=== PATIENT | male | born 1985 | race Caucasian/White ===

== ENCOUNTER 2020-09-04 13:29 | Emergency (ER) | payer OTHER, SELFPAY | END 2020-09-04 14:12 | disposition left against medical advice (07) | PROVIDERS: Emergency Provider Emergency Medicine | DX: M25.579 Pain in unspecified ankle and joints of unspecified foot (principal) ==

== ENCOUNTER 2021-08-06 16:35 | Emergency (ER) | payer OTHER, SELFPAY ==
--- NOTE | ~2021-08-06 | XR_ITS ---
EXAMINATION: XR KNEE, LEFT CLINICAL INFORMATION: Pain and swelling COMPARISON: None TECHNIQUE: Four views of the left knee. FINDINGS: Small joint effusion. Bones are normal anatomic alignment with no acute fracture or dislocation seen. No bony destructive lesions or periosteal reaction. XR/XR knee LT 4V IMPRESSION: Small joint effusion but no acute underlying bony abnormality.
[2021-08-06 18:10] VITALS: BP 128/89; PULSE 59; RESP 16; TEMP 36.8; O2SAT 99; BMI 33.3
--- NOTE | 2021-08-06 19:10 | ED.LOWEXIN ---
HPI - Extremity Injury (Lower) General Chief Complaint: Extremity Injury, Lower Stated Complaint: left knee swollen and painful Time Seen by Provider: 08/06/21 19:10 Source: patient Mode of arrival: ambulatory Limitations: no limitations History of Present Illness HPI Narrative: Patient presents to the emergency department for evaluation of atraumatic left knee pain and swelling. He states that he woke up this morning and noticed the symptoms. Denies ecchymosis, crepitus, warmth, Denies any fevers, chills, weakness, redness, swelling, numbness, tingling, identifiable causes such as fall or trauma. Reports past injury to the left knee 8 months ago, vague history but states his kneecap was out and had to be put back and then stiched up, denies surgical procedure . Denies any other joint pain/ stiffness, myalgias, locking, popping, or giving out of the knee. Denies concern for exposure to tick bite, recent treatment for STI or concerns for STIs, history of gout, history of DVT/PE, history of cancer. Related Data Previous Rx's Medication Instructions Recorded naproxen 500 mg tablet 500 mg PO BID 10 Days #20 tab 08/06/21 Allergies Allergy/AdvReac Type Severity Reaction Status Date / Time No Known Allergies [NKA] Allergy Mild NOT Unverified 01/13/20 16:24 APPLICABLE Review of Systems Review of Systems: Constitutional: No weight loss, fever, chills, weakness or fatigue. Skin: No rash or itching. Cardiovascular: No chest pain, chest pressure or chest discomfort. No palpitations or pedal edema. Respiratory: No shortness of breath, cough or sputum production. Gastrointestinal: No anorexia, nausea, vomiting or diarrhea. No abdominal pain Genitourinary: No burning micturition. No urinary frequency or incontinence. Musculoskeletal: Positive left knee pain with swelling Psychiatric: No depression or anxiety. Yes all other systems are reviewed and are negative PMFSH Past Medical History Attestation statement: The following information was validated with the patient. Source: old records reviewed Medical History No known health problems Social History Social History Advance Directives: No Advance Directives Information Provided: No Physical Exam Vital Signs: Vital Signs: Last Vital Signs Temp 98.2 F 08/06/21 22:42 Pulse 61 08/06/21 22:42 Resp 16 08/06/21 22:42 BP 137/88 08/06/21 22:42 Pulse Ox 100 08/06/21 22:42 BMI result Body Mass Index 33.3 Vital signs have been reviewed as normal and appeared to be correct. Blood pressure normal.? Heart rate normal.? Respiration rate normal. Temperature normal.? Oxygen saturation normal. Appearance: Alert.?Oriented to person, place and time. No acute distress.?Normal affect. Eyes: Pupils equal, round and reactive to light.? ENT: Pharynx normal.?? Neck: Normal inspection.? Neck supple.?? CVS: Heart sounds normal. Normal heart rate and rhythm.? Pulses normal.?? Respiratory: No respiratory distress.? Lung sounds clear to auscultation bilaterally?? Abdomen: Soft and non-tender.? Skin: Skin warm and dry.? Normal skin color.? Extremities: Effusion to the left knee. no erythema, no warmth, no rash, no redness. Anterior drawer test is negative, posterior drawer test is negative, valgus stress is negative, Varus stress test inducing pain. ? No calf ttp? Neuro: Moves all extremities spontaneously. Sensation intact bilaterally. CN II-XII intact. No focal neuro deficits. Ambulates with antalgic gait. Course Course Course Narrative: Patient is a 36-year-old male with no significant past medical history, presenting to the emergency department min for evaluation of left knee pain and swelling, atraumatic. Physical exam concerning for small joint effusion. Obtain basic labs including CBC, BMP and XR knee. Toradol for pain. History and physical exam inconsistent with cellulitis, septic joint. Reevaluation(s) Reevaluation #1: Called to room by nursing staff, having difficulty obtaining blood due to venous scarring from IV drug use. When speaking with patient he now admits to IV drug use. Reportedly last used 2 days ago. XR of the left knee reveals small joint effusion. Physical exam not consistent with septic joint this time, there is no erythema, no warmth, afhad near full range of motion, is able to walk and bear weight. Time: 19:30 Reevaluation #2: CBC is overall unremarkable. BMP unremarkable. Pain has improved Toradol. Discussed findings with patient, reviewed reasons to return back to the emergency department, close monitoring, naproxen twice daily, compression, rest, ice, elevation, follow-up with primary care provider. All questions were answered and patient is agreeable with plan of care for discharge home. Time: 23:01 MDM - Extremity Injury (Lower) Medical Records Attestation: I reviewed the patient's medical records. Lab Data Attestation: I reviewed the patient's lab results. Result diagrams: 08/06/21 22:08/06/21 22:01 Labs: Lab Results 08/06/21 08/06/21 Range/Units 22: 22:01 WBC 5.4 (4.8-10.8) X10*3/uL RBC 4.97 (4.60-5.80) X10*6/uL Hgb 14.3 (14.0-18.0) g/dl Hct 42.1 (42.0-52.0) % MCV 84.7 (80.0-98.0) fL MCH 28.8 (27.0-33.0) pg MCHC 34.0 (31.0-36.0) g/dl RDW 13.2 (11.0-16.0) % Plt Count 255 (160-400) X10*3/uL MPV 8.8 L (9.4-12.4) fL Immature Gran % (Auto) 0.2 (0.0-0.4) % Neut % (Auto) 54.7 (45-73) % Lymph % (Auto) 29.3 (20-40) % [place] % (Auto) 9.9 (2-11) % Eos % (Auto) 5.2 H (0-4) % Baso % (Auto) 0.7 (0-2) % Lymph # (Auto) 1.6 (1.2-4.9) X10*3/uL [place] # (Auto) 0.5 (0.1-1.2) X10*3/uL Eos # (Auto) 0.3 (0.0-0.4) X10*3/uL Baso # (Auto) 0.0 (0.0-0.2) X10*3/uL Abs Immat Gran (auto) 0.01 (0.00-0.03) X10*3/uL Absolute Neuts (auto) 2.9 (2.0-8.3) x10*3/uL Absolute Nucleated RBC 0.000 (0.0-0.012) X10*3/uL Nucleated RBC % (auto) 0.0 (0.0-0.2) /100WBC Sodium 140 (135-145) mmol/L Potassium 4.9 (3.3-5.1) mmol/L Chloride 101 (96-108) mmol/L Carbon Dioxide 32 H (22-29) mmol/L Anion Gap 12 (12-20) BUN 6 L (9-16) mg/dL Creatinine 0.82 (0.5-1.4) mg/dL Estim Creat Clear Calc 140.9 Estimated GFR > 60 Random Glucose 96 (60-115) mg/dL Calcium 10.5 H (8.4-10.2) mg/dL Imaging Data XR knee: Radiologist's impression: FINDINGS: Small joint effusion. Bones are normal anatomic alignment with no acute fracture or dislocation seen. No bony destructive lesions or periosteal reaction.? XR/XR knee LT 4V IMPRESSION: Small joint effusion but no acute underlying bony abnormality. ? Discharge Plan Discharge Clinical Impression: Effusion of knee Patient Disposition: Home, Self-Care Instructions: Swollen Knee Joint (ED) Additional Instructions: Please contact your primary care provider to schedule follow-up visit within 1 week. Please return to the emergency department with any new or worsening symptoms or concerns. Such as fevers, shaking chills, redness of the knee knee feels hot to touch, significant increase in pain or swelling, inability to bend knee, inability to bear weight or walk. Prescriptions: New naproxen 500 mg tablet 500 mg PO BID 10 Days Qty: 20 0RF Stand Alone Forms: Work/School Release Interventions: ED Discharge Assessment Last Done: 08/06/21 23:11 Discharge Date/Time: 08/06/21 23:13
[2021-08-06 19:18] VITALS: BP 137/86; PULSE 59; RESP 14; TEMP 36.9; O2SAT 99
[2021-08-06] MEDS: Ketorolac Tromethamine 60 MG/2 ML VIAL IM (19:38)
[2021-08-06 22:06] LABS: MANUAL DIFF FLAG NO
[2021-08-06 22:08] LABS: Basophils Percent Auto 0.7 % (0-2); Eosinophils Absolute Auto 0.3 X10*3/uL (0.0-0.4); Eosinophils Percent Auto 5.2 % (0-4); Hematocrit 42.1 % (42.0-52.0); Hemoglobin 14.3 g/dl (14.0-18.0); Imm Gran Abs Auto 0.01 X10*3/uL (0.00-0.03); Imm Gran Pct Auto 0.2 % (0.0-0.4); Lymphocytes Absolute Auto 1.6 X10*3/uL (1.2-4.9); Lymphocytes Percent Auto 29.3 % (20-40); Mean Corpuscular Hemoglobin 28.8 pg (27.0-33.0); Mean Corpuscular Volume 84.7 fL (80.0-98.0); Mean Platelet Volume 8.8 fL (9.4-12.4); Monocytes Absolute Auto 0.5 X10*3/uL (0.1-1.2); Monocytes Percent Auto 9.9 % (2-11); Neutrophils Absolute Auto 2.9 x10*3/uL (2.0-8.3); Neutrophils Percent Auto 54.7 % (45-73); Platelet Count 255 X10*3/uL (160-400); Red Blood Count 4.97 X10*6/uL (4.60-5.80); Red Cell Distribution Width 13.2 % (11.0-16.0); White Blood Count 5.4 X10*3/uL (4.8-10.8)
[2021-08-06 22:35] LABS: Anion Gap 12 (12-20); Blood Urea Nitrogen 6 mg/dL (9-16); Calcium 10.5 mg/dL (8.4-10.2); Carbon Dioxide 32 mmol/L (22-29); Chloride 101 mmol/L (96-108); Creatinine Clr Calc Pharmacy 140.9; Estimated Glomerular Filt Rate > 60; Glucose Random 96 mg/dL (60-115); Potassium 4.9 mmol/L (3.3-5.1); Sodium 140 mmol/L (135-145)
[2021-08-06 22:42] VITALS: BP 137/88; PULSE 61; RESP 16; TEMP 36.8; O2SAT 100
== END 2021-08-06 23:13 | disposition home or self-care (01) ==
PROVIDERS: Nurse Practitioner Family; Emergency Provider Emergency Medicine
DX: M25.562 Pain in left knee (principal); M25.462 Effusion, left knee
CPT/HCPCS: 36415; 73564; 80048; 85025; 96372; 99284; J1885

== ENCOUNTER 2022-02-09 18:08 | Emergency (ER) | payer OTHER, SELFPAY ==
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
--- NOTE | 2022-02-09 18:11 | PC.NURSE ---
Arrives via private vehicle. +ambulatory. Bleeding noted to bilateral forearms. Walked with float rn to ED 5
[2022-02-09 18:12] VITALS: BP 140/104; PULSE 105; RESP 14; TEMP 37.1; O2SAT 100; BMI 31.9
[2022-02-09] MEDS: Diphth,Pertus(ACell),Tet Adult 0.5 ML SYRINGE IM (18:34)
[2022-02-09 18:38] LABS: MANUAL DIFF FLAG NO
[2022-02-09 18:39] LABS: Basophils Absolute Auto 0.1 X10*3/uL (0.0-0.2); Basophils Percent Auto 0.6 % (0-2); Eosinophils Absolute Auto 0.1 X10*3/uL (0.0-0.4); Eosinophils Percent Auto 1.2 % (0-4); Hematocrit 39.6 % (42.0-52.0); Hemoglobin 13.7 g/dl (14.0-18.0); Imm Gran Abs Auto 0.02 X10*3/uL (0.00-0.03); Imm Gran Pct Auto 0.2 % (0.0-0.4); Lymphocytes Absolute Auto 2.6 X10*3/uL (1.2-4.9); Lymphocytes Percent Auto 30.3 % (20-40); Mean Corpuscular HGB Conc 34.6 g/dl (31.0-36.0); Mean Corpuscular Hemoglobin 29.7 pg (27.0-33.0); Mean Corpuscular Volume 85.9 fL (80.0-98.0); Mean Platelet Volume 8.9 fL (9.4-12.4); Monocytes Absolute Auto 0.8 X10*3/uL (0.1-1.2); Monocytes Percent Auto 8.8 % (2-11); Neutrophils Absolute Auto 5.1 x10*3/uL (2.0-8.3); Neutrophils Percent Auto 58.9 % (45-73); Platelet Count 237 X10*3/uL (160-400); Red Blood Count 4.61 X10*6/uL (4.60-5.80); Red Cell Distribution Width 13.6 % (11.0-16.0); White Blood Count 8.7 X10*3/uL (4.8-10.8)
[2022-02-09 18:58] LABS: COVID-19 Test Negative (Negative); IDNOW Serial# 16C4AD1C
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
[2022-02-09 19:06] VITALS: BP 126/92; PULSE 87; RESP 17; O2SAT 98
[2022-02-09] MEDS: cefTRIAXone sodium 1 GM in 0.9 % Sodium Chloride 50 ML IV (19:06)
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
[2022-02-09 19:31] LABS: Alanine Aminotransferase 120 U/L (0-40); Albumin Level 4.5 g/dL (3.5-5.0); Alkaline Phosphatase 104 U/L (39-117); Anion Gap 22 (12-20); Aspartate Amino Transferase 72 U/L (5-37); Bilirubin Total 0.7 mg/dL (0.0-1.0); Blood Urea Nitrogen 12 mg/dL (9-16); Calcium 9.8 mg/dL (8.4-10.2); Carbon Dioxide 23 mmol/L (22-29); Chloride 100 mmol/L (96-108); Creatinine Clr Calc Pharmacy 128.6; Estimated Glomerular Filt Rate > 60; Ethanol 97 mg/dL; Glucose Random 135 mg/dL (60-115); Magnesium 2.2 mg/dL (1.6-2.6); Potassium 3.7 mmol/L (3.3-5.1); Sodium 141 mmol/L (135-145); Total Protein 8.1 g/dL (6.5-8.0)
[2022-02-09] MEDS: iohexoL 350 MG/ML 100 ML INFUS..BTL IV (19:31)
[2022-02-09 19:42] LABS: Appearance Urine Clear; Color Urine Yellow; Glucose Urine UA Negative (Negative); Leukocyte Esterase Urine Negative (Negative); Nitrite Urine Negative (Negative); PH 5.5 (5.0-9.0); Specific Gravity - Urine <= 1.005 (1.005-1.025); Urine Blood Negative (Negative); Urine Ketones Negative (Negative); Urine Protein Negative (Neg-Trace)
[2022-02-09 19:46] VITALS: BP 142/89; PULSE 100; RESP 16; TEMP 36.7; O2SAT 98
[2022-02-09 19:56] LABS: Amphetamine Screen Urine Not Detected (Not Detect); Barbiturates, Urine Not Detected (Not Detect); Benzodiazepines Screen Urine Not Detected (Not Detect); Cannabinoid Screen Urine POSITIVE (Not Detect); Cocaine Screen Urine Not Detected (Not Detect); Fentanyl, urine POSITIVE (Not Detect); Opiate Screen Urine POSITIVE (Not Detect); Phencyclidine Screen Urine Not Detected (Not Detect)
--- NOTE | 2022-02-09 20:00 | PC.NURSE ---
Pt continue to be uncooperative, attempting to leave [place] [employer] at the bedside.
[2022-02-09] MEDS: Acetaminophen 325 MG TABLET 975 MG PO (20:32)
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
[2022-02-09 20:42] VITALS: BP 138/97; PULSE 89; RESP 18; TEMP 37.3; O2SAT 97
== END 2022-02-09 20:45 ==
PROVIDERS: Physician Assistant; Emergency Provider Student in an Organized Health Care Education/Training Program
DX: S06.0X9A Concussion with loss of consciousness of unspecified duration, initial encounter (principal); S41.131A Puncture wound without foreign body of right upper arm, initial encounter; S01.83XA Puncture wound without foreign body of other part of head, initial encounter; S51.832A Puncture wound without foreign body of left forearm, initial encounter; Y00.XXXA Assault by blunt object, initial encounter; M79.602 Pain in left arm; R00.0 Tachycardia, unspecified; F41.9 Anxiety disorder, unspecified; F19.90 Other psychoactive substance use, unspecified, uncomplicated; Y93.89 Activity, other specified; Y92.039 Unspecified place in apartment as the place of occurrence of the external cause; Y99.9 Unspecified external cause status; Z79.899 Other long term (current) drug therapy
CPT/HCPCS: 70450; 70486; 71045; 71260; 72125; 73060; 73090; 74177; 80053; 80307; 81003; 82077; 83735; 85025; 85610; 86850; 86900; 86901; 87635; 90471; 90715; 93005; 96365; 99285; J0696; Q9967

== ENCOUNTER 2023-04-10 15:07 | Inpatient (IN) | payer OTHER, MEDICAID, SELFPAY ==
[2023-04-10 15:21] VITALS: BP 147/100; PULSE 88; RESP 20; TEMP 36.9; O2SAT 100; BMI 31.9
--- NOTE | 2023-04-10 15:21 | ED.PSYCH ---
HPI - Psych General Chief Complaint: Psychiatric Symptoms Stated Complaint: crisis eval/ hearing voices Time Seen by Provider: 04/10/23 15:53 Source: patient Mode of arrival: ambulatory Limitations: no limitations History of Present Illness HPI Narrative: A 38-year-old male with history of heroin abuse patient stopped using heroin for 3 weeks cold turkey here today for evaluation of severe depression with suicidal ideation patient stated that he will do anything including jumping in front of a car or jumping of the bridge. Patient also reported auditory hallucinations hearing voices, and also visual hallucination of seeing shadows. Related Data Home Medications Medication Instructions Recorded Confirmed No Known Home Meds 04/10/23 04/10/23 Allergies Allergy/AdvReac Type Severity Reaction Status Date / Time No Known Allergies [NKA] Allergy Mild NOT Unverified 01/13/20 16:24 APPLICABLE Review of Systems Review of Systems: All other systems are reviewed and are negative Constitutional: Reports as per HPI and Reports no additional constitutional complaints Eyes: Reports as per HPI and Reports no additional eye complaints Reports system reviewed and no additional complaints, except as documented Cardiovascular: Reports as per HPI and Reports no additional cardiovascular complaints Respiratory: Reports as per HPI and Reports no additional respiratory complaints Gastrointestinal: Reports as per HPI and Reports no additional gastrointestinal complaints Genitourinary: Reports no additional female genitourinary complaints Musculoskeletal: Reports no additional musculoskeletal complaints Skin/Breast: Reports system reviewed and no additional complaints, except as docu Psychiatric: Reports no additional psychiatric complaints Endocrine: Reports no additional endocrine complaints Hematologic/Lymphatic: Reports no additional hematologic/lymphatic complaints Allergic/Immunologic: Reports no additional allergic/immunologic complaints Reports system reviewed and no additional complaints, except as documented and Reports Abnormal speech present [facility] Past Medical History Medical History No known health problems Social History Social History Advance Directives: No Advance Directives Information Provided: No Physical Exam Vital Signs: Vital Signs: Last Vital Signs Temp 98.4 F 04/10/23 15:21 Pulse 88 04/10/23 15:21 Resp 20 04/10/23 15:21 BP 147/100 H 04/10/23 15:21 Pulse Ox 100 04/10/23 15:21 O2 Del Method Room Air 04/10/23 15:21 BMI result Body Mass Index 31.9 Vital signs have been reviewed and appear to be correct. Blood pressure elevated. Heart rate normal. Respiratory rate normal. Temperature normal. Oxygen saturation normal. Appearance: Alert. Oriented X3. No acute distress. Head: Normal external exam. Normocephalic. Atraumatic. No Navarrete signs noted. No raccoon eyes noted Eyes: PERRLA. EOMI. Conjunctiva and sclera normal. Eyelids normal. ENT: TM's Normal. Pharynx normal. Uvula midline. Moist mucous membranes. No trismus noted. No drooling noted. No muffled voice noted. Neck: Normal inspection. Neck supple. FROM. No adenopathy. Thyroid Normal. No meningeal signs. No neck mass noted. CVS: Normal heart rate and rhythm. Heart sound normal. No murmurs noted. Pulses normal throughout. Respiratory: No respiratory distress. Painless inspiration. Breath sounds normal. No wheezes/rales/rhonchi noted. Chest nontender. No accessory muscle usage noted or decreased air movement noted. Abdomen: Soft and nontender. Bowel sounds normal in all 4 quadrants. No distention noted. No organomegaly noted. No visible injury noted. Back: No CVA tenderness. Full range of motion noted. Skin: Skin warm and dry. Normal skin color. Normal skin turgor. No rashes/lesions/lacerations noted. Extremities: No lower extremity edema. Extremities exhibit normal range of motion. Extremities nontender. Neuro: Oriented X 3. Cranial nerve exam: II-XII are grossly intact No motor deficit. No sensory deficit. Reflexes normal. Patient Orientation: Person, Place, Time and Situation, okay hygiene and grooming. Fair eye contact, attentive, no tics or tremors. Level of Consciousness: Awake, Appropriate and Alert Patient Behavior: Guarded, Cooperative and Anxious Mood Description: Constricted, Blunted and Apprehensive Affect Description: Constricted, Blunted and Apprehensive Patient Cognition Impaired: No Ability to Follow Directions: Excellent Speech Pattern: Clear, Appropriate and Spontaneous Speech, nonpressured, spontaneous with regular rate and rhythm, normal volume and prosody. No dysarthria. Memory Description: Intact, Immediate Intact and Short Term Intact Hallucinations: Reports both visual and auditory hallucination. Delusions: Not Present Thought Process: Intact Thought Content: positive for Intact, positive for Logical, denies Homicidal Ideation, report suicidal ideation with random plan. Depressive Symptoms: Not present. Judgement and Insight: Limited but adequate. Course Course Course Narrative: This is a rapid medical exam: Additional HPI, ROS, PE not included below will be deferred to primary provider. Patient is a 38-year-old male presenting to the ED with report of paranoia, auditory hallucinations, visual hallucinations seeing shadows. Also reports suicidal ideation, with thoughts of jumping in front of a car. Denies homicidal ideation. Denies prior psychiatric diagnoses, states is not prescribed any psychiatric medications. was using heroin up until 3 weeks ago, which is when his psychiatric symptoms began. Plan: patient brought directly to pod Reevaluation(s) Reevaluation #1: 38-year-old male a formal drug abuser came in with [facility], and SI. Will start the patient on physician observation, get care team evaluation. Time: 17:00 Medical Decision Making Differential Diagnosis Differential Diagnoses: The differential diagnosis associated with the presentation includes (Depression, SI, hallucination, delirium, medical clearance.) Admission/Observation Consideration of admission/observation: Escalation of care including admission/observation considered Lab Data [facility] Lab Attestation statement: I reviewed the patient's lab results. 04/10/23 16:52 04/10/23 16:52 Labs: Lab Results 04/10/23 04/10/23 Range/Units 15:46 16:52 WBC 7.4 (4.8-10.8) X10*3/uL RBC 4.42 L (4.60-5.80) X10*6/uL Hgb 13.2 L (14.0-18.0) g/dl Hct 37.5 L (42.0-52.0) % MCV 84.8 (80.0-98.0) fL MCH 29.9 (27.0-33.0) pg MCHC 35.2 (31.0-36.0) g/dl RDW 12.7 (11.0-16.0) % Plt Count 209 (160-400) X10*3/uL MPV 9.2 L (9.4-12.4) fL Immature Gran % (Auto) 0.1 (0.0-0.4) % Neut % (Auto) 56.6 (45-73) % Lymph % (Auto) 27.4 (20-40) % Beaver % (Auto) 7.7 (2-11) % Eos % (Auto) 7.0 H (0-4) % Baso % (Auto) 1.2 (0-2) % Lymph # (Auto) 2.0 (1.2-4.9) X10*3/uL Beaver # (Auto) 0.6 (0.1-1.2) X10*3/uL Eos # (Auto) 0.5 H (0.0-0.4) X10*3/uL Baso # (Auto) 0.1 (0.0-0.2) X10*3/uL Abs Immat Gran (auto) 0.01 (0.00-0.03) X10*3/uL Absolute Neuts (auto) 4.2 (2.0-8.3) x10*3/uL Absolute Nucleated RBC 0.000 (0.0-0.012) X10*3/uL Nucleated RBC % (auto) 0.0 (0.0-0.2) /100WBC Sodium 139 (135-145) mmol/L Potassium 3.5 (3.3-5.1) mmol/L Chloride 102 (96-108) mmol/L Carbon Dioxide 28 (22-29) mmol/L Anion Gap 13 (12-20) BUN 11 (9-16) mg/dL Creatinine 0.70 (0.5-1.4) mg/dL Estim Creat Clear Calc 158.5 Estimated GFR > 60 Random Glucose 125 H (60-115) mg/dL Calcium 9.5 (8.4-10.2) mg/dL Urine Color Yellow Urine Appearance Clear Urine pH 5.0 (5.0-9.0) Ur Specific Howes 1.015 (1.005-1.025) Urine Protein Negative (Neg-Trace) mg/dL Urine Glucose (UA) Negative (Negative) mg/dL Urine Ketones Negative (Negative) mg/dL Urine Blood Negative (Negative) Urine Nitrite Negative (Negative) Ur Leukocyte Esterase Negative (Negative) Salicylates < 5.0 L (15-30) mg/dL Urine Opiates Screen POSITIVE H (Not Detect) Urine Fentanyl Screen POSITIVE H (Not Detect) Acetaminophen < 3 (<30) mcg/mL Ur Barbiturates Screen Not Detected (Not Detect) Ur Phencyclidine Scrn Not Detected (Not Detect) Ur Amphetamines Screen Not Detected (Not Detect) U Benzodiazepines Scrn Not Detected (Not Detect) Urine Cocaine Screen Not Detected (Not Detect) U Marijuana (THC) Screen POSITIVE H (Not Detect) Ethyl Alcohol < 10 mg/dL COVID-19 ([facility]ACE) Negative (Negative) COVID-19 Clin Com See Note Discharge Plan Discharge Clinical Impression: Depression, Substance abuse Patient Disposition: Still a Patient Prescriptions: No Action No Known Home Meds Interventions: [place]-Suicide Risk Severity Scale Last Done: 04/10/23 15:24
[2023-04-10 16:04] LABS: Appearance Urine Clear; Color Urine Yellow; Glucose Urine UA Negative (Negative); Leukocyte Esterase Urine Negative (Negative); Nitrite Urine Negative (Negative); Specific Gravity - Urine 1.015 (1.005-1.025); Urine Blood Negative (Negative); Urine Ketones Negative (Negative); Urine Protein Negative (Neg-Trace)
[2023-04-10 16:13] LABS: Amphetamine Screen Urine Not Detected (Not Detect); Barbiturates, Urine Not Detected (Not Detect); Benzodiazepines Screen Urine Not Detected (Not Detect); Cannabinoid Screen Urine POSITIVE (Not Detect); Cocaine Screen Urine Not Detected (Not Detect); Fentanyl, urine POSITIVE (Not Detect); Opiate Screen Urine POSITIVE (Not Detect); Phencyclidine Screen Urine Not Detected (Not Detect)
[2023-04-10 16:41] LABS: COVID-19 Test Negative (Negative); IDNOW Serial# 58CA691E
[2023-04-10 16:56] LABS: MANUAL DIFF FLAG NO
[2023-04-10 16:59] LABS: Basophils Absolute Auto 0.1 X10*3/uL (0.0-0.2); Basophils Percent Auto 1.2 % (0-2); Eosinophils Absolute Auto 0.5 X10*3/uL (0.0-0.4); Hematocrit 37.5 % (42.0-52.0); Hemoglobin 13.2 g/dl (14.0-18.0); Imm Gran Abs Auto 0.01 X10*3/uL (0.00-0.03); Imm Gran Pct Auto 0.1 % (0.0-0.4); Lymphocytes Percent Auto 27.4 % (20-40); Mean Corpuscular HGB Conc 35.2 g/dl (31.0-36.0); Mean Corpuscular Hemoglobin 29.9 pg (27.0-33.0); Mean Corpuscular Volume 84.8 fL (80.0-98.0); Mean Platelet Volume 9.2 fL (9.4-12.4); Monocytes Absolute Auto 0.6 X10*3/uL (0.1-1.2); Monocytes Percent Auto 7.7 % (2-11); Neutrophils Absolute Auto 4.2 x10*3/uL (2.0-8.3); Neutrophils Percent Auto 56.6 % (45-73); Platelet Count 209 X10*3/uL (160-400); Red Blood Count 4.42 X10*6/uL (4.60-5.80); Red Cell Distribution Width 12.7 % (11.0-16.0); White Blood Count 7.4 X10*3/uL (4.8-10.8)
[2023-04-10 17:15] LABS: Acetaminophen LAB < 3 mcg/mL (<30); Anion Gap 13 (12-20); Blood Urea Nitrogen 11 mg/dL (9-16); Calcium 9.5 mg/dL (8.4-10.2); Carbon Dioxide 28 mmol/L (22-29); Chloride 102 mmol/L (96-108); Creatinine Clr Calc Pharmacy 158.5; Estimated Glomerular Filt Rate > 60; Ethanol < 10 mg/dL; Glucose Random 125 mg/dL (60-115); Potassium 3.5 mmol/L (3.3-5.1); Salicylate < 5.0 mg/dL (15-30); Sodium 139 mmol/L (135-145)
--- NOTE | 2023-04-10 17:33 | PC.NURSE ---
Solo self presented to the emergency dept seeking help after endorsing SI with a plan to jump into traffic or off a bridge. Denies HI but does endorse some AH. Solo is pleasant on admission and agreeable to changeover and labs. Pending assessment with CARE team currently. no behavioral concerns. Flat and quiet when engaged.
[2023-04-10 23:26] VITALS: BP 115/80; PULSE 90; RESP 18; TEMP 36.4; O2SAT 97
[2023-04-11 07:50] VITALS: BP 136/80; PULSE 91; RESP 16; TEMP 36.8; O2SAT 96
--- NOTE | 2023-04-11 10:06 | PC.NURSE ---
REPORT GIVEN TO RAND (RN) AND RODOLFO (RN) PT AWARE OF PLAN OF CARE FOR TRANSFER TO , BED 510.
[2023-04-11 10:26] VITALS: BP 107/76; PULSE 73; RESP 16; TEMP 36.4; O2SAT 96
--- NOTE | 2023-04-11 11:31 | PC.NURSE ---
pt declines NRT
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
[2023-04-11 18:00] VITALS: BP 118/64; PULSE 82; RESP 16; TEMP 37.1; O2SAT 98
[2023-04-11] MEDS: hydrOXYzine HCL 25 MG TABLET PO (21:12)
[2023-04-11] MEDS: QUEtiapine Fumarate 50 MG TABLET PO (21:13)
[2023-04-11] MEDS: traZODone HCL 50 MG TABLET PO (21:13)
[2023-04-11] MEDS: Acetaminophen 325 MG TABLET 650 MG PO (21:13)
[2023-04-12 08:00] VITALS: BP 148/82; PULSE 109; RESP 16; TEMP 36.9; O2SAT 97
[2023-04-12 08:18] LABS: Estimated Average Glucose 100 mg/dL; Hemoglobin A1c % 5.1 % (<6.0)
[2023-04-12 08:24] LABS: Alanine Aminotransferase 84 U/L (0-40); Albumin Level 3.9 g/dL (3.5-5.0); Alkaline Phosphatase 112 U/L (39-117); Anion Gap 13 (12-20); Aspartate Amino Transferase 50 U/L (5-37); Bilirubin Total 0.7 mg/dL (0.0-1.0); Blood Urea Nitrogen 13 mg/dL (9-16); Calcium 9.6 mg/dL (8.4-10.2); Carbon Dioxide 24 mmol/L (22-29); Chloride 108 mmol/L (96-108); Cholesterol 150 mg/dL (<200); Creatinine Clr Calc Pharmacy 142.3; Estimated Glomerular Filt Rate > 60; Glucose Fasting 98 mg/dL (60-99); HDL Cholesterol 42 mg/dL (>40); LDL Cholesterol Calculated 60 mg/dL (<100); Potassium 4.4 mmol/L (3.3-5.1); Sodium 141 mmol/L (135-145); Total Protein 7.3 g/dL (6.5-8.0); Triglycerides 240 mg/dL (<150)
[2023-04-12 08:39] LABS: Thyroid Stimulating Hormone 0.67 uIU/mL (0.32-4.0)
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
[2023-04-12 18:00] VITALS: BP 104/62; PULSE 61; RESP 18; TEMP 36.2; O2SAT 98
[2023-04-12] MEDS: QUEtiapine Fumarate 50 MG TABLET PO (21:20)
[2023-04-12] MEDS: traZODone HCL 50 MG TABLET PO (21:21)
[2023-04-12] MEDS: hydrOXYzine HCL 25 MG TABLET PO (21:21)
[2023-04-13 08:39] VITALS: BP 124/74; PULSE 90; RESP 16; TEMP 37; O2SAT 98
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
[2023-04-13] MEDS: cloNIDine HCL 0.1 MG TABLET PO ×2 (11:00→20:49)
[2023-04-13] MEDS: Cyclobenzaprine HCl 10 MG TABLET PO ×2 (11:16→20:49)
[2023-04-13 18:00] VITALS: BP 110/85; PULSE 91; RESP 16; TEMP 36.4; O2SAT 99
[2023-04-13] MEDS: hydrOXYzine HCL 25 MG TABLET PO (20:49)
[2023-04-13] MEDS: traZODone HCL 50 MG TABLET PO (20:49)
[2023-04-13] MEDS: QUEtiapine Fumarate 50 MG TABLET PO (20:49)
[2023-04-14 08:21] VITALS: BP 127/86; PULSE 93; RESP 16; TEMP 36.5; O2SAT 97
[2023-04-14] MEDS: buPROPion HCl XL 150 MG TAB.ER.24H PO (08:31)
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
[2023-04-14] MEDS: Cyclobenzaprine HCl 10 MG TABLET PO (18:15)
[2023-04-14] MEDS: hydrOXYzine HCL 25 MG TABLET PO (18:15)
[2023-04-14] MEDS: QUEtiapine Fumarate 50 MG TABLET PO (21:46)
[2023-04-14] MEDS: traZODone HCL 50 MG TABLET PO (21:47)
[2023-04-14 21:50] VITALS: BP 98/73; PULSE 118; TEMP 36.3
[2023-04-15 08:00] VITALS: BP 123/85; PULSE 85; RESP 16; TEMP 36.8; O2SAT 97
[2023-04-15] MEDS: buPROPion HCl XL 150 MG TAB.ER.24H PO (08:56)
[2023-04-15] MEDS: Naloxone HCl Nasal TAKE HOME 4 MG SPRAY 8 MG NOSTRILALT (10:45)
== END 2023-04-15 10:53 | disposition home or self-care (01) | DRG 751 ==
LOC: HO.ED 04-11 08:05 → HO.PM5 04-11 09:54
PROVIDERS: Registered Nurse Emergency; Social Worker; Admitting Provider Psychiatry & Neurology Psychiatry; Emergency Provider Emergency Medicine Emergency Medical Services; Visit Provider Psychiatry & Neurology Psychiatry
DX: F33.3 Major depressive disorder, recurrent, severe with psychotic symptoms (principal); R45.851 Suicidal ideations; F17.210 Nicotine dependence, cigarettes, uncomplicated; F11.23 Opioid dependence with withdrawal; Z20.822 Contact with and (suspected) exposure to COVID-19; Z23 Encounter for immunization; Z71.6 Tobacco abuse counseling; Z79.899 Other long term (current) drug therapy
CPT/HCPCS: 36415; 80048; 80053; 80061; 80143; 80179; 80307; 81003; 83036; 84443; 85025; 87635; 90686; 99285; S9485

== ENCOUNTER → 2023-04-11 09:33 | Outpatient (BNV) | payer MEDICAID, SELFPAY | PROVIDERS: Admitting Provider Psychiatry & Neurology Psychiatry; Emergency Provider Emergency Medicine Emergency Medical Services; Visit Provider Psychiatry & Neurology Psychiatry | DX: F33.3 Major depressive disorder, recurrent, severe with psychotic symptoms (principal); F11.90 Opioid use, unspecified, uncomplicated | CPT/HCPCS: 90792; 99231; 99232; 99238 ==